=== PATIENT | female | born 1945 | race Caucasian/White ===

== ENCOUNTER 2020-07-10 16:21 | Inpatient (IN) | payer MEDICARE ==
[~2020-07-10] VITALS: Ht 154.9 cm; Wt 79.8 kg
[2020-07-10 16:25] VITALS: BP 92/44
[2020-07-10 16:53] LABS: ABSOLUTE NEUTROPHILS 3.1 thou/uL (1.4-8.2); BASOPHILS 1.4 % (0.0-2.0); EOSINOPHILS 8.5 % (0.0-3.0); HEMATOCRIT 32.7 % (37.0-47.0); HEMOGLOBIN 11.1 gm/dL (12.0-15.0); MCH 32.1 pg (26.0-34.0); MCHC 33.9 g/dL (28.0-37.0); MCV 94.5 fL (80.0-100.0); MONOCYTES 10.5 % (1.0-8.0); PLATELET COUNT 175 thou/uL (150-400); POLYS 52.6 % (36.0-66.0); RBC 3.46 mil/uL (4.20-5.00); WBC 5.9 thou/uL (4.0-11.0)
[2020-07-10 17:01] LABS: ANION GAP 4 mmol/L (7-16); BUN 7 mg/dL (7-18); CALCIUM 8.8 mg/dL (8.5-10.1); CHLORIDE 89 mmol/L (98-107); CO2 28 mmol/L (21-32); GLUCOSE 111 mg/dL (74-106); POTASSIUM 3.8 mmol/L (3.5-5.1); SODIUM 121 mmol/L (136-145)
[2020-07-10 17:10] LABS: TROPONIN-I <0.06 ng/mL (<0.06)
[2020-07-10] MEDS ORDERED: LEVOTHYROXINE50 MCG PO (19:47)
[2020-07-10] MEDS ORDERED: LOSARTAN POTAS100 MG PO (19:49)
[2020-07-10] MEDS ORDERED: DIAZEPAM 5 MG5 M1 PO (19:49)
[2020-07-10] MEDS ORDERED: METOPROLOL SUCC50 MG PO (19:50)
[2020-07-10] MEDS ORDERED: OXYBUTYNIN 5 MG5 M2 PO ×2 (19:51)
[2020-07-10] MEDS ORDERED: PROTONIX40 M2 PO (19:52)
[2020-07-10] MEDS ORDERED: CARDURA4 MG PO (19:52)
[2020-07-10] MEDS ORDERED: HYDROCORTISONE5 MG PO (19:53)
[2020-07-10] MEDS ORDERED: CORTEF5 MG PO (19:53)
[2020-07-10] MEDS ORDERED: ASA81BEC PO (19:56)
[2020-07-10] MEDS ORDERED: TRAZODONE HCL50 MG PO (19:56)
[2020-07-10 20:35] LABS: URINE BILIRUBIN NEGATIVE (Negative); URINE BLOOD 2+ (Negative); URINE CLARITY CLEAR; URINE COLOR YELLOW; URINE GLUCOSE-RANDOM* NEGATIVE (Negative); URINE KETONES NEGATIVE (Negative); URINE LEUKOCYTES-REFLEX NEGATIVE (Negative); URINE NITRITE-REFLEX NEGATIVE (Negative); URINE PROTEIN (DIPSTICK) NEGATIVE (Negative); URINE SPECIFIC GRAVITY 1.015 (1.005-1.035); URINE UROBILINOGEN 0.2 E.U./dl (0.2-1.0)
[2020-07-10 20:45] VITALS: BP 186/81
[2020-07-10 20:48] VITALS: BP 186/81
[2020-07-10 20:53] LABS: MUCUS None Seen strn/LPF (None Seen); SQUAMOUS 0-3 Few /LPF (0-3); URINE RBC 3-10 Few /HPF (0-2)
[2020-07-10 20:54] LABS: BACTERIA-REFLEX None Seen /HPF (None Seen); CASTS None Seen /LPF (None Seen); CRYSTALS None Seen /LPF (None Seen); URINE WBC-REFLEX None Seen /HPF (0-5)
--- NOTE | 2020-07-10 21:15 | NUR ---
Pt. admitted to the unit from the emergency room accompanied by staff. She is alert and oriented and offers no complaints. Pt. oriented to staff and to her room.
[2020-07-10 21:31] VITALS: BP 138/45
--- NOTE | 2020-07-10 22:30 | NUR ---
Pt. resting quietly in the bed and requesting to go to the bathroom. She am- bulated to the bathroom with stand by assistance and her walker. Admission history and assessment is completed.
--- NOTE | 2020-07-10 23:51 | NUR ---
DR. ESTRADA NOTIFIED OF CRITICAL FINDINGS ON RESULTS OF LOWER EXTREMITY DOPPLER
--- NOTE | 2020-07-11 03:00 | NUR ---
Pt. went down for ct with contrast, but tech said she could not do it as pt. already had contrast. Per CT protocal they do not do another contrast test for another [address] Warner aware and she said it was ok to do per radiology.
[2020-07-11 04:38] LABS: HEMOGLOBIN 10.8 gm/dL (12.0-15.0); MCH 32.3 pg (26.0-34.0); MCHC 33.8 g/dL (28.0-37.0); MCV 95.7 fL (80.0-100.0); RBC 3.35 mil/uL (4.20-5.00); RDW 14.4 % (10.5-14.5); WBC 3.9 thou/uL (4.0-11.0)
[2020-07-11 05:05] LABS: ANION GAP 6 mmol/L (7-16); BUN 4 mg/dL (7-18); CALCIUM 8.5 mg/dL (8.5-10.1); CHLORIDE 93 mmol/L (98-107); CO2 25 mmol/L (21-32); CREATININE 0.7 mg/dL (0.6-1.0); GLUCOSE 105 mg/dL (74-106); POTASSIUM 3.9 mmol/L (3.5-5.1); SODIUM 124 mmol/L (136-145); TROPONIN-I <0.06 ng/mL (<0.06)
[2020-07-11 05:07] VITALS: BP 137/66
[2020-07-11 07:20] VITALS: BP 143/66
[2020-07-11 15:13] VITALS: BP 128/56
--- NOTE | 2020-07-11 18:36 | NUR ---
ASSUMED PT CARE AROUND 729. PT ALERT X ORIENTED X4. ON ROOM AIR. 1 PERSON ASST WITH A WALKER. TELE PT ON SINUS RHYTHM.IV RT AC WITH NS/ 100ML/HR. NO C/O PAIN. JEHOVA'S WITNESS. PT REFUED OT, BUT WORKED WITH PT. PT EATING AND DRINKING WELL. PT SAID, SHE TALKE TO HER DAUGHTER. FALL PRECT IN PLACE, CALL LIGHT WITHIN REACH, PT WILL CALL FOR HELP. WILL CONT TO MONITOR.
[2020-07-11 19:24] VITALS: BP 133/62
[2020-07-12 04:32] LABS: ALBUMIN 2.6 g/dL (3.4-5.0); CALCIUM 8.4 mg/dL (8.5-10.1); CREATININE 0.8 mg/dL (0.6-1.0); PHOSPHORUS 4.4 mg/dL (2.5-4.9)
--- NOTE | 2020-07-12 05:22 | NUR ---
PT AMBULATING TO BATHROOM WITH WALKER AND ASSIST X1 AND IS TOLERATING FAIR. DENIES PAIN. DENIES NAUSEA. RESTING COMFORTABLY. NO NEEDS VOICED. CALL LIGHT WITHIN REACH. FREQUENT OBSERVATION.
[2020-07-12 07:20] VITALS: BP 137/51
[2020-07-12] MEDS ORDERED: FLORINEF ACETA0.1 MG PO (09:41)
[2020-07-12] MEDS ORDERED: LEVO-T25 MCG PO (09:45)
[2020-07-12] MEDS ORDERED: ELIQUIS5 M1 PO (09:45)
[2020-07-12 11:46] VITALS: BP 137/51
--- NOTE | 2020-07-12 12:35 | NUR ---
ASSUMED PT CARE THIS AM. PT VSS, A&OX4. TOOK MEDS WELL THIS AM. IV PATENT, FLUIDS INFUSING. PT NSR OF TELE. UP WITH ASSIST TO BATHROOM. DRESSING ON LEFT KNEE C/D/I. PT REMAINS CONTINENT. FALL PRECAUTIONS IN PLACE, CALLING APPROPRIATELY WHEN NEEDED. ON ROOM AIR. NO PAIN NOTED.
--- NOTE | 2020-07-13 07:35 | EKG ---
[place] [address] [place] [address] ELECTROCARDIOGRAM REPORT Name: TODD OLIVERA Room #: 455-P [facility] M.R.#: [id number] Admission: 07/10/20 Attend Phys: Delma Warner MD Discharge: 07/12/20 Date of : 45 Report #: [id number] [facility] ED Test Date: 2020-07-10 Test Time: 16:26:15 Pat Name: TODD OLIVERA Department: Room: [facility] Gender: F Professor Of Chemistry: KWAME : 1945 Requested By: Rashaad Mcclure Order Number: [id number] MD: Jeremy Guan Measurements Intervals [place] Rate: 71 P: -3 [place]: 166 QRS: -19 QRSD: 92 T: 77 QT: 385 QTc: 419 Interpretive Statements Sinus rhythm Borderline left axis deviation Abnormal R-wave progression, late transition Nonspecific T abnormalities, lateral leads No previous ECG available for comparison Electronically Signed On 07-13-2020 7:35:46 [employer] MACHINE OPERATOR by Jeremy Guan [email or web address] <ELECTRONICALLY SIGNED> By: Jeremy Guan MD, [facility] 07/13/20 0735 1625 25 Jeremy Guan MD, FACC /EPI
== END 2020-07-12 13:43 | disposition home or self-care (01) | DRG 176 ==
LOC: ER 16:21 → 4W 20:12 → EROBS 20:12 → 4W 21:34
PROVIDERS: Emergency Medicine; ADMIT Internal Medicine; ATTEND Internal Medicine
DX: I26.99 Other pulmonary embolism without acute cor pulmonale (principal); E87.1 Hypo-osmolality and hyponatremia; F41.9 Anxiety disorder, unspecified; I10 Essential (primary) hypertension; F32.9 Major depressive disorder, single episode, unspecified; E03.9 Hypothyroidism, unspecified; E78.5 Hyperlipidemia, unspecified; Z96.643 Presence of artificial hip joint, bilateral; Z96.651 Presence of right artificial knee joint; Z79.899 Other long term (current) drug therapy; Z79.82 Long term (current) use of aspirin; Z82.49 Family history of ischemic heart disease and other diseases of the circulatory system
CPT/HCPCS: 10045